=== PATIENT | female | born 1975 | race African-American/Black ===

== ENCOUNTER 2018-03-27 12:03 | Emergency (ER) | payer MEDICAID, OTHER ==
[~2018-03-27] VITALS: Ht 177.8 cm; Wt 90.7 kg
[2018-03-27] MEDS ORDERED: KETOROLAC 60 MG/2 ML VIAL IM ONE (13:15)
[2018-03-27] MEDS ORDERED: PROCHLORPERAZINE 10 MG/2ML INJ (COMPAZINE) IM ONE (13:15)
[2018-03-27] MEDS ORDERED: diphenhydrAMINE 50 MG/ML INJ (BENADRYL) IM ONE (13:15)
--- NOTE | 2018-03-27 13:27 | ED Headache ---
General Chief Complaint: Head/Cervical Problems Stated Complaint: CHUNG,WEAK,LIGHT HEADED Nursing Triage Note: PATIENT STATES THAT SHE HAS BEEN HAVING HEADACHE FOR WEEKS. SHE STATES THAT SHE "JUST FEELS BAD ALL THE TIME." PATIENT VAGUE IN HER DESCRIPTIONS AND BECAME ANGRY WHEN i ASKED HER QUESTIONS. Nursing Sepsis Screen: No Definite Risk Source: patient Exam Limitations: no limitations History of Present Illness Date Seen by Provider: Mar 27, 2018 Time Seen by Provider: 13:00 Initial Comments Patient is a 42-year-old female who decided to check into the emergency room after we were evaluating her for a cold I'm also providing her and she was behaving erratically in the room. She complaints of headache for a week, she states "she just feels bad all the time". When I ask her what felt bad she became angry and did not want to answer any more of my questions. She states that she has just been having a headache. She reported to the nursing staff that she smokes weed. When I questioned her if she had any drug use she became very angry started yelling very loudly at me. I informed her that if she continued this behavior we will be calling the police. She calmed down at this time and agreed to treatment for her headache. Timing/Duration: 1 week Location: [facility] Prior Headaches/Recent Trauma: no recent headache/trauma, occasional headaches Associated Symptoms: denies symptoms Allergies and Home Medications Allergies Coded Allergies: No Known Drug Allergies (Unverified , 03/27/18) Patient Home Medication List Home Medication List Reviewed: Yes Review of Systems Constitutional: see HPI; No chills, No fever Psychiatric/Neurological: See HPI, Headache All Other Systems Reviewed Negative Unless Noted: Yes Past [id number]-Swztrs Hx Past Med/Social Hx: Reviewed Nursing Past Med/Soc Hx Patient Social History Alcohol Use: Denies Use Recreational Drug Use: Yes (WEED) Smoking Status: Current Everyday Smoker Type Used: Cigarettes 2nd Hand Smoke Exposure: Yes Recent Foreign Travel: No Contact w/Someone Who Travel: No Recent Infectious Disease Expo: No Recent Hopitalizations: No Physical Abuse: No Sexual Abuse: No Seasonal Allergies Seasonal Allergies: No Past Medical History Surgeries: No Psychosocial: Yes (SLEEP DISTURBANCES) Bipolar, Depression Nursing Suicide Risk Score: 0 Family Medical History Reviewed Nursing Family Hx Physical Exam Vital Signs Vital Signs - First Documented 03/27/18 12:45 Temp 96.9 Pulse 64 Resp 20 B/P (MAP) 155/107 (123) Pulse Ox 98 Capillary Refill : Less Than 3 Seconds Height, Weight, BMI Height: 5'10.00" Weight: 200lbs. 0oz. 90.409372at; BMI Method:Stated General Appearance: WD/WN, no apparent distress HEENT: PERRL/EOMI, normal ENT inspection, TMs normal, pharynx normal Neck: non-tender, full range of motion, supple, normal inspection Cardiovascular: regular rate, rhythm, no edema, no gallop, no JVD, no murmur Respiratory: chest non-tender, lungs clear, normal breath sounds, no respiratory distress, no accessory muscle use Psychiatric: alert, oriented x 3 Skin: normal color, warm/dry Progress/Results/Core Measures Results/Orders Lab Results Laboratory Tests Test 03/27/18 13:20 Range/Units Urine Color YELLOW Urine Clarity CLOUDY H Urine pH 6.5 5-9 Urine Specific [place] 1.015 L 1.016-1.022 Urine Protein 1+ H NEGATIVE Urine Glucose (UA) NEGATIVE NEGATIVE Urine Ketones NEGATIVE NEGATIVE Urine Nitrite NEGATIVE NEGATIVE Urine Bilirubin NEGATIVE NEGATIVE Urine Urobilinogen NORMAL NORMAL MG/DL Urine Leukocyte Esterase 2+ H NEGATIVE Urine RBC (Auto) 3+ H NEGATIVE Urine RBC 0-2 /HPF Urine WBC 2-5 /HPF Urine Squamous Epithelial Cells 25-50 H /HPF Urine Crystals NONE /LPF Urine Bacteria FEW H /HPF Urine Casts NONE /LPF Urine Mucus NEGATIVE /LPF Urine Culture Indicated YES Urine Opiates Screen NEGATIVE NEGATIVE Urine Oxycodone Screen NEGATIVE NEGATIVE Urine Methadone Screen NEGATIVE NEGATIVE Urine Propoxyphene Screen NEGATIVE NEGATIVE Urine Barbiturates Screen NEGATIVE NEGATIVE Ur Tricyclic Antidepressants Screen NEGATIVE NEGATIVE Urine Phencyclidine Screen POSITIVE H NEGATIVE Urine Amphetamines Screen NEGATIVE NEGATIVE Urine Methamphetamines Screen NEGATIVE NEGATIVE Urine Benzodiazepines Screen NEGATIVE NEGATIVE Urine Cocaine Screen NEGATIVE NEGATIVE Urine Cannabinoids Screen POSITIVE H NEGATIVE Micro Results Microbiology 03/27/18 Urine Culture - Final, Complete See Comments Sent To l My Orders Orders - JOHN CASTELLANOS Ketorolac Injection (Toradol Injection) (03/27/18 13:15) Prochlorperazine Injection (Compazine In (03/27/18 13:15) Diphenhydramine Injection (Benadryl Inje (03/27/18 13:15) Ua Culture If Indicated (03/27/18 13:19) Drug Screen Stat (Urine) (03/27/18 13:19) Urine Culture (03/27/18 13:20) Medications Given in ED Vital Signs/I&O 03/27/18 03/27/18 12:45 14:25 Temp 96.9 96.9 Pulse 64 64 Resp 20 20 B/P (MAP) 155/107 (123) 155/107 (123) Pulse Ox 98 98 Blood Pressure Mean: 123 Progress Progress Note : Progress Note I have seen and evaluated the patient. She reports that she has not been taking her medications regularly due to moving and not having a regular schedule. I have informed her of the importance of adhering to her medications prescribed by her primary care doctor especially her psychiatric medications. She is pain free after medications. She agrees with plans of discharge, plans of care, and close follow up with PCP. Departure Impression Primary Impression: Headache Disposition: 01 HOME, SELF-CARE Condition: Stable/Unchanged Departure-Patient Inst. Decision time for Depature: 14:10 Referrals: NO,LOCAL PHYSICIAN (PCP/Family) Primary Care Physician Patient Instructions: Headache, Adult (DC) Add. Discharge Instructions: Take your medication as previously prescribed by your physician. Follow-up with your doctor within 1 week for recheck. Return back to the emergency room for any concerns as needed. All discharge instructions reviewed with patient and/or family. Voiced understanding. JOHN CASTELLANOS Mar 27, 2018 13:27
[2018-03-27 13:28] LABS: BILIRUBIN,URINE NEGATIVE (NEGATIVE); COLOR,URINE YELLOW; GLUCOSE, URINE (UA) NEGATIVE (NEGATIVE); KETONES,URINE NEGATIVE (NEGATIVE); LEUKOCYTE ESTERASE ,URINE 2+ (NEGATIVE); NITRITE,URINE NEGATIVE (NEGATIVE); PH,URINE 6.5 (5-9); PROTEIN,URINE 1+ (NEGATIVE); UROBILINOGEN,URINE NORMAL (NORMAL)
[2018-03-27 13:39] LABS: BACTERIA,URINE FEW /HPF; CLARITY,URINE CLOUDY; RBC,URINE 0-2 /HPF; SQUAMOUS EPITHELIAL CELL,UR 25-50 /HPF
[2018-03-27 13:41] LABS: AMPHETAMINE SCREEN, URINE NEGATIVE (NEGATIVE); BARBITURATE SCREEN URINE NEGATIVE (NEGATIVE); BENZODIAZEPINES SCREEN URINE NEGATIVE (NEGATIVE); CANNABINOID SCREEN, URINE POSITIVE (NEGATIVE); COCAINE SCREEN URINE NEGATIVE (NEGATIVE); METHADONE STAT NEGATIVE (NEGATIVE); METHAMPHETAMINE SCREEN URINE S NEGATIVE (NEGATIVE); OPIATE SCREEN URINE NEGATIVE (NEGATIVE); OXYCODONE STAT NEGATIVE (NEGATIVE); PROPOXYPHENE STAT NEGATIVE (NEGATIVE); TRICYCLIC ANTIDEPRESSANTS SCRE NEGATIVE (NEGATIVE)
[2018-03-27 14:25] VITALS: BP 155/107
== END 2018-03-27 14:37 | disposition home or self-care (01) ==
LOC: EDUNIT# 12:03 → ER 12:05
DX: R51 Headache (principal); F31.9 Bipolar disorder, unspecified; F12.10 Cannabis abuse, uncomplicated; F17.210 Nicotine dependence, cigarettes, uncomplicated
CPT/HCPCS: 80306; 81000; 87088; 96372; 99284